=== PATIENT | male | born 1965 | race Caucasian/White ===

== ENCOUNTER → 2020-04-21 | Outpatient (CLI) | payer BC ==
[2020-04-21 09:17] LABS: HEMATOCRIT 48.9 % (39.0-53.0)
== END | disposition home or self-care (01) ==
LOC: LAB 08:53
PROVIDERS: ATTEND Family Medicine
DX: D45 Polycythemia vera (principal); R07.89 Other chest pain
CPT/HCPCS: 36415; 85014; 85018; 99195